=== PATIENT | male | born 1960 ===

== ENCOUNTER 2017-07-24 17:07 | Inpatient (IN) | payer MEDICARE, BC ==
[~2017-07-24] VITALS: Ht 165.1 cm; Wt 76.2 kg
[2017-07-24 17:37] LABS: BASOPHILS # (AUTO) 0.1 K/uL (0.0-8.0); BASOPHILS % (AUTO) 1.2 % (0.0-2.0); EOSINOPHILS # (AUTO) 0.1 K/uL (0.0-0.7); EOSINOPHILS % (AUTO) 1.8 % (0.0-7.0); HEMATOCRIT 34.4 % (40-50); HEMOGLOBIN 11.3 G/DL (14.0-18.0); LYMPHOCYTES # (AUTO) 1.5 K/UL (0.8-4.8); LYMPHOCYTES % (AUTO) 24.1 % (20.5-51.5); MEAN CORPUSCULAR HEMOGLOBIN 28.1 UUG (27.0-31.0); MEAN CORPUSCULAR HGB CONC 33 g/dL (32.0-37.0); MEAN CORPUSCULAR VOLUME 85.8 FL (82.0-92.0); MONOCYTES # (AUTO) 0.4 K/UL (0.1-1.30); MONOCYTES % (AUTO) 6.9 % (0.0-11.0); NEUTROPHILS # (AUTO) 4.1 K/UL (1.8-8.9); PLATELET COUNT (AUTO) 213 K/UL (150-450); RED BLOOD CELL COUNT(AUTO) 4.01 MIL/UL (4.7-6.1); WHITE BLOOD COUNT (AUTO) 6.2 K/UL (4.0-11.2)
[2017-07-24 17:41] LABS: CARBON DIOXIDE 33 mmol/L (21-32); CHLORIDE 101 mmol/L (98-107); CREATININE 2.4 mg/dL (0.6-1.3); GLUCOSE 96 mg/dL (74-106); POTASSIUM 4.6 mmol/L (3.5-5.1); UREA NITROGEN, BLOOD 40 mg/dL (7-18)
[2017-07-24] MEDS ORDERED: CLON1TAB4 PO (17:43)
[2017-07-24] MEDS ORDERED: COLC0.6C3 PO (17:43)
[2017-07-24] MEDS ORDERED: PROP10DR5 OP (17:43)
[2017-07-24] MEDS ORDERED: DULO60CA45 PO (17:43)
[2017-07-24] MEDS ORDERED: CYCL30DR OP (17:43)
[2017-07-24] MEDS ORDERED: POLY15DR57 OP (17:43)
[2017-07-24] MEDS ORDERED: TRAZ-147 PO (17:43)
[2017-07-24] MEDS ORDERED: AZEL6DRO5 OP (17:43)
[2017-07-24] MEDS ORDERED: LISI1TAB11 PO (17:43)
[2017-07-24] MEDS ORDERED: BENZ1TAB7 PO (17:43)
[2017-07-24] MEDS ORDERED: RISP1TAB27 PO (17:43)
[2017-07-24] MEDS ORDERED: RISP0.5T20 PO (17:43)
[2017-07-24 17:50] LABS: ETHANOL < 3 MG/DL (0-0)
[2017-07-24 17:55] LABS: ALANINE AMINOTRANSFERASE 47 U/L (16-63); ALKALINE PHOSPHATASE 54 U/L (50-136); ASPARTATE AMINOTRANSFERASE 76 U/L (15-37); BILIRUBIN,DIRECT 0.2 mg/dL (0.0-0.2); BILIRUBIN,TOTAL 1.3 mg/dL (0.2-1.0); TOTAL PROTEIN, SERUM 7.8 g/dL (6.4-8.2)
--- NOTE | 2017-07-24 17:55 | NUR ---
a pitcher of water provided for pt to drink per md order. pt drinking
[2017-07-24 17:56] LABS: ACETAMINOPHEN < 2.0 ug/mL (10-30)
--- NOTE | 2017-07-24 18:30 | NUR ---
transfered pt to [facility] in stable condition
[2017-07-24 18:46] VITALS: BP 99/71
--- NOTE | 2017-07-24 18:46 | NUR ---
Pt arrived to unit [facility] accompanied by ER nurse. Endorsed to night auditor RN.
--- NOTE | 2017-07-24 22:20 | NUR ---
PATIENT RECEIVED IN CHAIR ALERT/ORIENTED X 1-2 TO NAME. PATIENT PARANOID, SUSPICIOUS.PATIENT APPEARS WITH FLAT AFFECT. PATIENT REFUSED TO ANSWER QUESTIONS, AND REFUSED TO SIGN ADMISSION PAPERS. PATIENT INFORMED OF HOLD, UNWILLING TO ANSWER ANY QUESTIONS. " I DON'T WANT TO TALK ABOUT IT, IT'S A LONG STORY." PATIENT COOPERATIVE OF BODY ASSESSMENT, BILATERAL TOE NAILS LONG AND DISCOLORED, NO ADDITIONAL SKIN ISSUES. PATIENT DENIES SUICIDAL IDEATION DENIES PLAN, WILL CONTINUE TO MONITOR AND REDIRECT NEEDED. PATIENT ENCOURAGED TO EXPRESS FEELINGS AND CONCERNS. NO AGGRESSIVE OR COMBATIVE BEHAVIOR NOTED WILL CONTINUE TO MONITOR. PATIENT ORIENTED TO ROOM AND RESTROOM. DR. HELMS NOTIFIED OF ADMISSION, AND DR. GEORGE WELL. PATIENT RIGHT'S HAND BOOK AND ADVISEMENT GIVEN TO PATIENT AT BED SIDE. PATIENT DENIES PAIN AT THIS TIME, WILL CONTINUE TO MONITOR. BED IN LOWEST POSITION, BED LOCKED.
[2017-07-25 07:30] VITALS: BP 103/64
[2017-07-25 07:44] LABS: BASOPHILS % (AUTO) 0.9 % (0.0-2.0); EOSINOPHILS # (AUTO) 0.1 K/uL (0.0-0.7); EOSINOPHILS % (AUTO) 3.3 % (0.0-7.0); HEMATOCRIT 32.3 % (40-50); HEMOGLOBIN 10.7 G/DL (14.0-18.0); LYMPHOCYTES # (AUTO) 1.2 K/UL (0.8-4.8); LYMPHOCYTES % (AUTO) 31.1 % (20.5-51.5); MEAN CORPUSCULAR HEMOGLOBIN 28.2 UUG (27.0-31.0); MEAN CORPUSCULAR HGB CONC 33 g/dL (32.0-37.0); MEAN CORPUSCULAR VOLUME 85.2 FL (82.0-92.0); MONOCYTES # (AUTO) 0.3 K/UL (0.1-1.30); MONOCYTES % (AUTO) 8.9 % (0.0-11.0); NEUTROPHILS # (AUTO) 2.2 K/UL (1.8-8.9); NEUTROPHILS % (AUTO) 55.8 % (38.5-71.5); PLATELET COUNT (AUTO) 197 K/UL (150-450); RED BLOOD CELL COUNT(AUTO) 3.79 MIL/UL (4.7-6.1)
[2017-07-25 07:56] LABS: WHITE BLOOD COUNT (AUTO) 3.9 K/UL (4.0-11.2)
[2017-07-25 08:28] LABS: THYROID STIMULATING HORMONE 1.111 mIU/mL (0.358-3.740)
[2017-07-25 08:50] LABS: BILIRUBIN,TOTAL 1.2 mg/dL (0.2-1.0); CREATININE 1.9 mg/dL (0.6-1.3); MAGNESIUM 2.2 mg/dL (1.8-2.4); POTASSIUM 4.3 mmol/L (3.5-5.1); TOTAL PROTEIN, SERUM 7.3 g/dL (6.4-8.2)
[2017-07-25 09:18] LABS: PHOSPHOROUS 4.3 mg/dL (2.5-4.9)
[2017-07-25 16:00] VITALS: BP 101/60
[2017-07-25 20:39] VITALS: BP 110/70
[2017-07-26 07:30] VITALS: BP 107/71
--- NOTE | 2017-07-26 13:19 | NUR ---
Initial DC Plan: Pt currently resides at [facility] [place] [[id number] [place] [address]; ] and will return upon discharge. DEJON spoke with patient and patient's brother Wenceslao [[phone]] regarding potential discharge plan. DEJON will discuss discharge plans with MD, patient, and pt's family. SW will form a safe and proper discharge plan.
[2017-07-26 15:35] VITALS: BP 119/65
[2017-07-26 18:03] LABS: *CREATININE,URINE 167.5 mg/dL (30-125); *URINE TOTAL PROTEIN RANDOM 14.5 mg/dL (<150/24HR)
[2017-07-26 18:07] LABS: *BILIRUBIN,URIN NEGATIVE (NEGATIVE); *BLOOD, URINE NEGATIVE (NEGATIVE); *CLARITY,URINE CLEAR (CLEAR); *COLOR,URINE YELLOW (YELLOW); *KETONES,URINE TRACE (NEGATIVE); *PROTEIN,URINE NEGATIVE (NEGATIVE); *UROBILINOGEN,URINE 0.2 E.U./dl (NORMAL); LEUKOCYTE ESTERASE ,URINE NEGATIVE (NEGATIVE); NITRITE, URINE NEGATIVE (NEGATIVE); UGLUCOSE NEGATIVE (NEGATIVE)
[2017-07-26 18:10] LABS: MUCUS,URINE FEW /LPF (0-FEW); WBC,URINE 0-3 /HPF (0-3)
[2017-07-26 20:12] VITALS: BP 102/70
[2017-07-27 07:30] VITALS: BP 126/92
[2017-07-27 07:40] LABS: CREATININE 1.5 mg/dL (0.6-1.3); MAGNESIUM 2.2 mg/dL (1.8-2.4); PHOSPHOROUS 3.1 mg/dL (2.5-4.9); POTASSIUM 4.1 mmol/L (3.5-5.1); TOTAL PROTEIN, SERUM 7.8 g/dL (6.4-8.2)
[2017-07-27 07:54] LABS: BASOPHILS % (AUTO) 0.6 % (0.0-2.0); EOSINOPHILS # (AUTO) 0.2 K/uL (0.0-0.7); EOSINOPHILS % (AUTO) 3.3 % (0.0-7.0); HEMATOCRIT 34.3 % (40-50); HEMOGLOBIN 11.5 G/DL (14.0-18.0); LYMPHOCYTES # (AUTO) 1.2 K/UL (0.8-4.8); LYMPHOCYTES % (AUTO) 25.8 % (20.5-51.5); MEAN CORPUSCULAR HEMOGLOBIN 28.5 UUG (27.0-31.0); MEAN CORPUSCULAR HGB CONC 34 g/dL (32.0-37.0); MEAN CORPUSCULAR VOLUME 85.3 FL (82.0-92.0); MONOCYTES # (AUTO) 0.3 K/UL (0.1-1.30); MONOCYTES % (AUTO) 6.4 % (0.0-11.0); NEUTROPHILS # (AUTO) 2.9 K/UL (1.8-8.9); NEUTROPHILS % (AUTO) 63.9 % (38.5-71.5); PLATELET COUNT (AUTO) 222 K/UL (150-450); RED BLOOD CELL COUNT(AUTO) 4.03 MIL/UL (4.7-6.1); WHITE BLOOD COUNT (AUTO) 4.6 K/UL (4.0-11.2)
[2017-07-27 17:10] VITALS: BP 116/84
[2017-07-27 20:28] VITALS: BP 123/83
[2017-07-28 07:30] VITALS: BP 125/79
[2017-07-28 16:09] VITALS: BP 130/89
[2017-07-28 21:04] VITALS: BP 149/91
[2017-07-29 07:44] VITALS: BP 130/81
[2017-07-29 07:46] LABS: BASOPHILS % (AUTO) 0.6 % (0.0-2.0); EOSINOPHILS # (AUTO) 0.1 K/uL (0.0-0.7); HEMATOCRIT 33.7 % (40-50); LYMPHOCYTES # (AUTO) 1.1 K/UL (0.8-4.8); LYMPHOCYTES % (AUTO) 23.3 % (20.5-51.5); MEAN CORPUSCULAR HGB CONC 33 g/dL (32.0-37.0); MEAN CORPUSCULAR VOLUME 85.6 FL (82.0-92.0); MONOCYTES # (AUTO) 0.3 K/UL (0.1-1.30); MONOCYTES % (AUTO) 6.7 % (0.0-11.0); NEUTROPHILS # (AUTO) 3.1 K/UL (1.8-8.9); NEUTROPHILS % (AUTO) 66.4 % (38.5-71.5); PLATELET COUNT (AUTO) 186 K/UL (150-450); RED BLOOD CELL COUNT(AUTO) 3.94 MIL/UL (4.7-6.1); WHITE BLOOD COUNT (AUTO) 4.6 K/UL (4.0-11.2)
[2017-07-29 08:00] LABS: BILIRUBIN,TOTAL 0.8 mg/dL (0.2-1.0); CREATININE 1.5 mg/dL (0.6-1.3); MAGNESIUM 2.1 mg/dL (1.8-2.4); PHOSPHOROUS 3.1 mg/dL (2.5-4.9); POTASSIUM 4.1 mmol/L (3.5-5.1); TOTAL PROTEIN, SERUM 7.2 g/dL (6.4-8.2)
[2017-07-29 17:40] VITALS: BP 125/90
[2017-07-29 20:33] VITALS: BP 123/73
[2017-07-30 06:08] LABS: A/G RATIO 1.2 (0.7-1.7); ALBUMIN 3.8 g/dL (2.9-4.4); ALPHA-1-GLOBULIN 0.2 g/dL (0.0-0.4); ALPHA-2-GLOBULIN 0.8 g/dL (0.4-1.0); BETA GLOBULIN 0.8 g/dL (0.7-1.3); GAMMA GLOBULIN 1.4 g/dL (0.4-1.8); GLOBULIN, TOTAL 3.2 g/dL (2.2-3.9); M-SPIKE 1.2 g/dL (Not Observed)
[2017-07-30 07:30] VITALS: BP 152/99
[2017-07-30 16:59] VITALS: BP 130/93
[2017-07-30 20:04] VITALS: BP 126/74
[2017-07-31 07:20] LABS: CREATININE 1.4 mg/dL (0.6-1.3); POTASSIUM 4.2 mmol/L (3.5-5.1)
[2017-07-31 15:11] VITALS: BP 132/91
--- NOTE | 2017-07-31 16:29 | NUR ---
Patient visible around unit, paces hallways throughout the shift, pleasant on approach, interacts with peers and staff, spend time in the dayroom after lunch watching tv. Medication compliant and cooperative. Will continue to monitor for safety and needs.
[2017-07-31 20:28] VITALS: BP 116/80
[2017-08-01 07:30] VITALS: BP 144/86
[2017-08-01 20:27] VITALS: BP 142/96
--- NOTE | 2017-08-02 06:38 | NUR ---
GPS: REMAIN CALM AND COOPERATIVE.SLEPT 07:30 HRS THROUGH THE NIGHT. CONTINUE PLAN OF CARE. NO AGITATION NOTED THIS TIME.
[2017-08-02 07:30] VITALS: BP 145/86
[2017-08-02 08:11] LABS: BASOPHILS % (AUTO) 0.4 % (0.0-2.0); EOSINOPHILS # (AUTO) 0.2 K/uL (0.0-0.7); EOSINOPHILS % (AUTO) 2.8 % (0.0-7.0); HEMATOCRIT 35.2 % (40-50); HEMOGLOBIN 11.9 G/DL (14.0-18.0); LYMPHOCYTES # (AUTO) 1.1 K/UL (0.8-4.8); LYMPHOCYTES % (AUTO) 19.9 % (20.5-51.5); MEAN CORPUSCULAR HEMOGLOBIN 28.8 UUG (27.0-31.0); MEAN CORPUSCULAR HGB CONC 34 g/dL (32.0-37.0); MEAN CORPUSCULAR VOLUME 84.9 FL (82.0-92.0); MONOCYTES # (AUTO) 0.3 K/UL (0.1-1.30); MONOCYTES % (AUTO) 5.2 % (0.0-11.0); NEUTROPHILS # (AUTO) 3.8 K/UL (1.8-8.9); NEUTROPHILS % (AUTO) 71.7 % (38.5-71.5); PLATELET COUNT (AUTO) 212 K/UL (150-450); RED BLOOD CELL COUNT(AUTO) 4.14 MIL/UL (4.7-6.1); WHITE BLOOD COUNT (AUTO) 5.4 K/UL (4.0-11.2)
[2017-08-02 08:30] LABS: BILIRUBIN,TOTAL 0.4 mg/dL (0.2-1.0); CREATININE 1.4 mg/dL (0.6-1.3); PHOSPHOROUS 3.4 mg/dL (2.5-4.9); POTASSIUM 4.4 mmol/L (3.5-5.1); TOTAL PROTEIN, SERUM 7.9 g/dL (6.4-8.2)
--- NOTE | 2017-08-02 10:21 | NUR ---
DC Note: Patient will be discharged to [facility] [[address] [place] [address]; ] via ambulance at 12:00 pm. Spoke with Elaine at the facility who stated they would accept the patient today. Spoke with patients brother, Wenceslao [[phone]] who is aware and agreeable with discharge plans. Patient is aware and agreeable with discharge plans as well. Patient will follow-up with (Psychiatrist) and (Patrol Supervisor) at the facility.
[2017-08-02 11:45] VITALS: BP 145/86
--- NOTE | 2017-08-02 13:00 | NUR ---
adm Elaine of the facility accepted back the partient and aware that patient wii be discharged today. Discharged instrucions given to patient regarding medications to continue upon discharged. 1230 Patient picked up by ambulance and transferred patient to [facility]. patient alert and ox3, denies SI/HI.
== END 2017-08-02 12:30 | DRG 885 ==
LOC: ER 17:13 → GPS 18:16
PROVIDERS: ADMIT Psychiatry & Neurology Psychosomatic Medicine; ATTEND Internal Medicine
DX: F25.0 Schizoaffective disorder, bipolar type (principal); N18.9 Chronic kidney disease, unspecified; N17.0 Acute kidney failure with tubular necrosis; F70 Mild intellectual disabilities; E87.0 Hyperosmolality and hypernatremia; R45.851 Suicidal ideations; F03.90 Unspecified dementia, unspecified severity, without behavioral disturbance, psychotic disturbance, mood disturbance, and anxiety; E88.09 Other disorders of plasma-protein metabolism, not elsewhere classified; E86.0 Dehydration; E78.5 Hyperlipidemia, unspecified; Z85.038 Personal history of other malignant neoplasm of large intestine; Z79.899 Other long term (current) drug therapy; H40.9 Unspecified glaucoma; D64.9 Anemia, unspecified; I12.9 Hypertensive chronic kidney disease with stage 1 through stage 4 chronic kidney disease, or unspecified chronic kidney disease; D72.819 Decreased white blood cell count, unspecified; F41.9 Anxiety disorder, unspecified
CPT/HCPCS: 36415; 70450; 71010; 80164; 82306; 83735; 83970; 84100; 84155; 84156; 84165; 84300; 84443; 85025; 93005; A4663; G0480; G0480-TC